=== PATIENT | male | born 1965 ===

== ENCOUNTER 2025-05-12 20:47 | Inpatient (IN) | payer MEDICAID, OTHER, SELFPAY ==
--- NOTE | ~2025-05-12 | XR_ITS ---
CLINICAL HISTORY: cough, fever 1 view chest x-ray Comparison: None Findings: Lung inflation is normal. Cardiac and mediastinal silhouettes are normal. Pulmonary arterial vasculature is normal. There is no pneumothorax or pleural effusion. No consolidative opacities. Osseous structures are normal. IMPRESSION: 1. No acute cardiopulmonary process. This document has been electronically signed by: Kiko Nguyen III, MD PHD on 05/12/2025 22:51:48
--- NOTE | ~2025-05-12 | XR_ITS ---
CLINICAL HISTORY: pain 3 view left foot Comparison: None provided Findings: No fractures or dislocations. No significant loss of joint space, osteophytes, or erosions. Calcaneal plantar enthesopathy is present. Subtalar articulations are normally aligned. Degenerative changes are present at the talonavicular articulation. No ankle effusion. No radiopaque foreign body. IMPRESSION: 1. No acute fracture, subluxation or dislocation. 2. Talonavicular degenerative change. This document has been electronically signed by: Kiko Nguyen III, MD PHD on 05/12/2025 22:51:02
--- NOTE | ~2025-05-12 | CT_ITS ---
CLINICAL HISTORY: R sided headache x [address] head without contrast Indication: Right-sided headache Comparison: None Findings: Brain is normal in volume and morphology. Ventricles are normal in size. Midbrain, jenn, medulla, and cerebellum are normal. There is no focal loss of ann-white differentiation in a large arterial distribution. No subarachnoid hemorrhage is present. No subdural or epidural hematoma. Suprasellar and basal cisterns are clear. There is no midline shift. Dural venous sinuses are symmetrically dense. There is a partial empty sella. Orbits are normal. Extraocular muscles are symmetric. Prominence of the bilateral superficial temporal arteries. No acute calvarial fracture or diastasis. Mastoid air cells are normally aerated. Paranasal sinuses are clear. Temporomandibular articulations are normally aligned. IMPRESSION: 1. No acute intracranial hemorrhage. 2. No loss of ann-white differentiation in a large vascular distribution. 3. Prominence of the superficial temporal arteries may be seen with inflammatory conditions, such as temporal arteritis. These may be clinically correlated. This document has been electronically signed by: Kiko Nguyen III, MD PHD on 05/12/2025 23:59:01
[2025-05-12 21:12] VITALS: BP 110/54; PULSE 106; RESP 20; TEMP 38.3; O2SAT 97; BMI 36.3
--- NOTE | 2025-05-12 21:13 | ED_ITS ---
HPI - Headache General Chief Complaint: Headache Stated Complaint: right side headache through right eye Time Seen by Provider: 05/12/25 21:21 Source: patient and family Mode of arrival: ambulatory Limitations: no limitations History of Present Illness ED Provider: Dr. Nicky Barragan HPI Narrative: Patient comes to the emergency room complaining of 2 weeks of fever especially at night. Patient states that he has headache especially on the right side in the temporal aspect, and left toe pain. Patient states that he does not have any medical problems, does not quite go to the doctor to get checked out. Patient denies any blurred vision, visual changes, headache is only on the right side and the temporal aspect, no neck pain or stiffness, no vomiting diarrhea, no chest pain or shortness of breath, no flank pain, no dysuria or hematuria. No rash other than the swelling in the great toe that has been present for 2 days. Patient states that he has never been diagnosed with gout before Related Data Allergies Allergy/AdvReac Type Severity Reaction Status Date / Time No Known Allergies Allergy Verified 05/12/25 21:13 Review of Systems 2 Review of Systems: Constitutional : No Weight loss, complaining of intermittent Fever for 2 weeks, worse at night, No Chills, No Night Sweats, No Fatigue, No Malaise ENT/Mouth : No Hearing loss, No Ear Pain, No Nasal Congestion, No Sinus Pain, No Hoarseness, No sore throat, No Rhinorrhea, No Swallowing Difficulty Eyes: No Eye Pain, No Swelling, No Redness, No Foreign Body, No Discharge, No Vision Changes Cardiovascular : No Chest Pain, No SOB, No Dyspnea on Exertion, No Orthopnea, No Edema, No Palpitations Respiratory : No Cough, No Sputum, No Wheezing, No Smoke Exposure, No Dyspnea Gastrointestinal : No Nausea, No Vomiting, No Diarrhea, No Constipation, No abdominal Pain, No Hematochezia, No Melena Genitourinary : no irregular bleeding, No Dysuria, No Urinary Frequency, No Hematuria, No Urinary Incontinence, No Urgency, No Flank Pain, No Urinary Flow Changes, No Hesitancy Musculoskeletal : No joint pain, No Myalgias, No Joint Swelling Skin : No Skin Lesions, No rash, complaining of great toe pain for 2 days Neuro : No Weakness, No Numbness, No Paresthesias, No Loss of Consciousness, No Dizziness, complaining of right temporal headache intermittently, Psych : No Anxiety/Panic, No Depression, No SI/HI/AH/VH, No Social Issues, Heme/Lymph: No Bruising, No Bleeding,No Lymphadenopathy Endocrine : No Polyuria, No Polydipsia, No Temperature Intolerance [facility] Social History Social History Do you have a plan to hurt others: No Plan Physical Exam 2 Exam: Exam: Appearance: Alert. Oriented X3. No acute distress. Eyes: Pupils equal, round and reactive to light. ENT: Pharynx normal. Neck: Normal inspection. Neck supple. No lymph nodes noted. No crepitus CVS: Normal heart rate and rhythm. Pulses normal. Normal S1 and S2 Respiratory: No respiratory distress. Breath sounds normal. No Wheezing. No rales Abdomen: Soft and nontender. No rigidity. No distention. Skin: Skin warm and dry. Normal skin color. Normal skin turgor. , tenderness to palpation over the right side of the head over the temporal region Extremities: No lower extremity edema. No Lacerations. No Rash. Patient's toe on the left foot is erythematous and a bit swollen, no pus drainage Neuro: Oriented X 3. No motor deficit. No sensory deficit. Moving all extremities. No slurred speech. CN 2 through 12 grossly intact Psych: calm, cooperative, normal affect Vital Signs: Vital Signs: Last Vital Signs Temp 98.7 F 05/13/25 00:07 Pulse 88 05/13/25 00:07 Resp 16 05/13/25 00:07 BP 94/57 L 05/13/25 00:58 Pulse Ox 98 05/13/25 00:07 O2 Del Method Room Air 05/13/25 00:07 BMI result Body Mass Index 36.3 Course Course Course Narrative: 60 yo male who does not go to the doctors so unclear if he has any medical problems at this time he c/o L toe pain, R sided headache for 2 weeks. He denies fevers but has a fever of 101 here. He denies travel. He c/o L great toe pain as well. His pain is localized over R temporal artery. When asked about a fall he states not since September. At this time he will need labs, cultures, lactic acid, foot xray, head CT, CXR and start on empiric abx in case of toe infection/pneumonia this is a RAPID medical screening exam the rest of the history and physical exam is to be done by the main provider. TYSHAWN 05/12/25 916pm Medications Administered Discontinued Medications Generic Name Dose Route Start Last Admin Trade Name Sushil PRN Reason Stop Dose Admin Colchicine 0.6 mg 05/13/25 00:29 05/13/25 01:05 Colchicine 0.6 Mg Tablet PO 05/13/25 00:30 0.6 mg ONCE ONE Administration Acetaminophen 1,000 mg in 100 mls @ 400 mls/hr 05/12/25 21:14 05/12/25 21:40 Ofirmev IV 05/12/25 21:28 Infused ONCE ONE Infusion Piperacillin Sod/Tazobactam 50 mls @ 100 mls/hr 05/12/25 21:14 05/12/25 22:35 Sod 3.375 gm/ Sodium Chloride IV 05/12/25 21:43 Infused ONCE ONE Infusion Sodium Chloride 2,000 mls @ 999 mls/hr 05/12/25 21:43 05/13/25 00:15 Ns IVCONT 05/12/25 23:43 Infused .Q2H1M ONE Infusion Prednisone 60 mg 05/13/25 00:30 05/13/25 01:04 Prednisone 20 Mg Tablet PO 05/13/25 00:31 60 mg ONCE ONE Administration Medical Decision Making Medical Decision Making MDM Narrative: patient has already been prophylactically started on IV fluids based on ideal weight of 50 kg, patient is obese. Also, receiving prophylactic antibiotics. My interpretation of labs: Patient's white blood cell count is 13.9. Hemoglobin 12.9. We did not have any previous labs for comparison. Normal chemistry, normal lactic acid. Serology negative for COVID and RSV patient has normal range of motion with neck flexion and extension, no rigidity or stiffness, meningitis is not suspected patient's ESR is 58, CRP 8.31. CT scan does not show any acute intracranial hemorrhage, permanent sats superficial temporal arteries, possible temporal arteritis patient's blood pressure has been dropping to the low 90s despite IV fluids. No significant hypotension. Patient received earlier today IV fluids, antibiotics on arrival, patient had a fever of 101. No clear source of infection, it may be secondary to autoimmune process or giant cell arteritis I discussed the above-mentioned with Dr. Brown from the Medicine team, patient being admitted Differential Diagnosis Differential Diagnoses: The differential diagnosis associated with the presentation includes ( gout, temporal arteritis, viral syndrome) Consult Healthcare Provider Management of the patient was discussed with: Hospitalist Lab Data MDM Lab Attestation statement: I reviewed the patient's lab results. 05/12/25 21:34 05/12/25 21:34 Labs: Lab Results 05/12/25 05/13/25 Range/Units 21:34 00:19 WBC 13.9 H (4.8-10.8) X10*3/uL RBC 3.78 L (4.60-5.80) X10*6/uL Hgb 12.4 L (14.0-18.0) g/dl Hct 33.9 L (42.0-52.0) % MCV 89.7 (80.0-98.0) fL MCH 32.8 (27.0-33.0) pg MCHC 36.6 H (31.0-36.0) g/dl RDW 11.9 (11.0-16.0) % Plt Count 300 (160-400) X10*3/uL MPV 9.1 L (9.4-12.4) fL Immature Gran % (Auto) 0.3 (0.0-0.4) % Neut % (Auto) 83.4 H (45-73) % Lymph % (Auto) 10.3 L (20-40) % [place] % (Auto) 4.7 (2-11) % Eos % (Auto) 0.9 (0-4) % Baso % (Auto) 0.4 (0-2) % Lymph # (Auto) 1.4 (1.2-4.9) X10*3/uL [place] # (Auto) 0.7 (0.1-1.2) X10*3/uL Eos # (Auto) 0.1 (0.0-0.4) X10*3/uL Baso # (Auto) 0.1 (0.0-0.2) X10*3/uL Abs Immat Gran (auto) 0.04 H (0.00-0.03) X10*3/uL Absolute Neuts (auto) 11.6 H (2.0-8.3) x10*3/uL Absolute Nucleated RBC 0.000 (0.0-0.012) X10*3/uL Nucleated RBC % (auto) 0.0 (0.0-0.2) /100WBC ESR 58 H (0-15) MM/HR Sodium 136 (135-145) mmol/L Potassium 3.6 (3.3-5.1) mmol/L Chloride 103 (96-108) mmol/L Carbon Dioxide 24 (22-29) mmol/L Anion Gap 13 (12-20) BUN 23 H (9-16) mg/dL Creatinine 0.91 (0.5-1.4) mg/dL Estim Creat Clear Calc 86.0 Estimated GFR > 60 Random Glucose 113 (60-115) mg/dL Lactic Acid 1.2 (0.5-2.0) mmol/L Calcium 8.5 (8.4-10.2) mg/dL Total Bilirubin 0.4 (0.0-1.0) mg/dL Direct Bilirubin 0.2 (0.0-0.5) mg/dL AST 27 (5-37) U/L ALT 23 (0-40) U/L Alkaline Phosphatase 94 (39-117) U/L C-Reactive Protein 8.31 H (< or = 0.50) mg/dL Total Protein 7.4 (6.5-8.0) g/dL Albumin 3.9 (3.5-5.0) g/dL Urine Color Yellow Urine Appearance Clear Urine pH 5.5 (5.0-9.0) Ur Specific [place] 1.020 (1.005-1.025) Urine Protein Negative (Neg-Trace) mg/dL Urine Glucose (UA) Negative (Negative) mg/dL Urine Ketones Negative (Negative) mg/dL Urine Blood Negative (Negative) Urine Nitrite Negative (Negative) Ur Leukocyte Esterase Negative (Negative) COVID-19 ([facility]ON) Negative (Negative) COVID-19 Clin Com See Note Independent Interpretation I performed an independent interpretation of an: CT Scan Radiology Impression Discussion of test interpretation with radiology: I have reviewed the radiologist's reading. Radiologist Impression: Brain is normal in volume and morphology. Ventricles are normal in size. Midbrain, jenn, medulla, and cerebellum are normal. There is no focal loss of ann-white differentiation in a large arterial distribution. No subarachnoid hemorrhage is present. No subdural or epidural hematoma. Suprasellar and basal cisterns are clear. There is no midline shift. Dural venous sinuses are symmetrically dense. There is a partial empty sella. Orbits are normal. Extraocular muscles are symmetric. Prominence of the bilateral superficial temporal arteries. No acute calvarial fracture or diastasis. Mastoid air cells are normally aerated. Paranasal sinuses are clear. Temporomandibular articulations are normally aligned. IMPRESSION: 1. No acute intracranial hemorrhage. 2. No loss of ann-white differentiation in a large vascular distribution. 3. Prominence of the superficial temporal arteries may be seen with inflammatory conditions, such as temporal arteritis. These may be clinically correlated. Critical Care Time Critical Care Time Critical Care Time: Yes Total Critical Care Time: 60 Attestation: I have personally provided critical care time. Time includes review of lab data, radiology results, discussion with consultants, and monitoring for potential decompensation. Intervention performed as documented. Discharge Plan Discharge Clinical Impression: Temporal giant cell arteritis, Fever, Acute hypotension Patient Disposition: Admitted As Inpatient
[2025-05-12 21:42] LABS: MANUAL DIFF FLAG NO
[2025-05-12 21:44] LABS: Hematocrit 33.9 % (42.0-52.0); Hemoglobin 12.4 g/dl (14.0-18.0); Imm Gran Abs Auto 0.04 X10*3/uL (0.00-0.03); Imm Gran Pct Auto 0.3 % (0.0-0.4); Lymphocytes Absolute Auto 1.4 X10*3/uL (1.2-4.9); Mean Corpuscular HGB Conc 36.6 g/dl (31.0-36.0); Mean Corpuscular Hemoglobin 32.8 pg (27.0-33.0); Mean Corpuscular Volume 89.7 fL (80.0-98.0); NRBC Abs Auto 0.000 X10*3/uL (0.0-0.012); NRBC Pct Auto 0.0 /100WBC (0.0-0.2); Platelet Count 300 X10*3/uL (160-400); Red Blood Count 3.78 X10*6/uL (4.60-5.80); White Blood Count 13.9 X10*3/uL (4.8-10.8)
[2025-05-12 21:55] LABS: Anion Gap 13 (12-20); Blood Urea Nitrogen 23 mg/dL (9-16); Calcium 8.5 mg/dL (8.4-10.2); Carbon Dioxide 24 mmol/L (22-29); Chloride 103 mmol/L (96-108); Creatinine Clr Calc Pharmacy 86.0; Estimated Glomerular Filt Rate > 60; Potassium 3.6 mmol/L (3.3-5.1); Sodium 136 mmol/L (135-145)
[2025-05-12 21:57] LABS: COVID-19 Test Negative (Negative); IDNOW Serial# 55D5AD1C
[2025-05-12 22:36] LABS: Alanine Aminotransferase 23 U/L (0-40); Albumin Level 3.9 g/dL (3.5-5.0); Alkaline Phosphatase 94 U/L (39-117); Aspartate Amino Transferase 27 U/L (5-37); Total Protein 7.4 g/dL (6.5-8.0)
[2025-05-12 23:04] VITALS: TEMP 37.2
[2025-05-12 23:10] VITALS: BP 96/51; PULSE 88; RESP 18; TEMP 37.3; O2SAT 97
[2025-05-13] VITALS (15 sets, daily range): BP systolic 90–113; BP diastolic 53–59; PULSE 77–92; RESP 16–18; TEMP 36.1–37.7; O2SAT 94–100; BMI 37.9
[2025-05-13 00:31] LABS: Appearance Urine Clear; Glucose Urine UA Negative (Negative); PH 5.5 (5.0-9.0); Specific Gravity - Urine 1.020 (1.005-1.025)
--- NOTE | 2025-05-13 01:12 | PC.NURSE ---
pt medicated per MAR, b/p noted and provider advised. pt resting, family at bedside.
--- NOTE | 2025-05-13 01:49 | P.HPHOSP_ITS ---
History of Present Illness Date of Service: 05/13/25 Attending physician on admission: Lesa Frazier Chief Complaint: Right-sided headache Chandler Plummer is a 60 years old man with no significant past medical history presents to the emergency department complaining of right-sided headache over the last 2 weeks associated with fever. The headache radiate to his right eye and tip of the head. He denied any acute visual disturbances social blindness, blurry vision or double vision. He is also complaining of left 1st toe swelling and pain. He has no history of gout. He also denied any nausea, vomiting, chills, chest pain, sore throat, shortness on breath, abdominal pain, nausea, vomiting, diarrhea or pain with urination. He denied tobacco smoking, alcohol abuse or illicit drug use. He does not have history type mellitus, essential hypertension, hyperlipidemia, strokes or kidney disease. Patient is not taking any medications. In the ED, he was found to have stable vital signs, however, his blood pressure is soft. Last blood pressure is 94/57. Temperature was 101 degrees and there was mild tachycardia. Oxygen saturation is normal. Blood workup showed leukocytosis of 13.9. CRP is elevated at 8.31. There are no electrolyte imbalances. BUN is 23 and creatinine 0.91. Urinalysis showed no evidence of urinary. Head CT scan showed no acute intracranial hemorrhage but this showed prominence of the superficial temporal arteries may be seen with inflammatory conditions such as temporal arteritis. Left foot x-ray showed no acute fracture, stabilization or dislocation, it did showed talonavicular degenerative changes. CXR is negative. ED tx: Acetaminophen 1 g IV, Zosyn 3.375 g IV, NS 2 L bolus, colchicine 0.6 mg p.o., prednisone 60 mg p.o. daily Review of Systems 2 Review of Systems: All 12 systems were reviewed and normal except as noted in HPI. [facility] Social History Advance Directives: No Advance Directives Information Provided: Yes Do you have a plan to hurt others: No Plan Meds Allergies Allergy/AdvReac Type Severity Reaction Status Date / Time No Known Allergies Allergy Verified 05/12/25 21:13 Active Medications: Current Medications Acetaminophen (Acetaminophen 325 Mg Tablet) 650 mg PO Q6H PRN PRN Reason: Pain, Mild 1-3,fever,headache Aspirin (Aspirin Enteric Coated 81 Mg Tablet.) 81 mg PO DAILY ANNY Calcium Carbonate (Calcium Carbonate 750 Mg Tab.Chew) 750 mg PO Q4H PRN PRN Reason: Heartburn Lactated Ringer's (Lr) 1,000 mls @ 125 mls/hr IVCONT .Q8H ANNY Stop: 05/13/25 09:44 Magnesium Hydroxide (Milk Of Magnesia 30 Ml Oral.Susp) 30 ml PO DAILY PRN PRN Reason: Constipation Melatonin (Melatonin 3 Mg Tablet) 6 mg PO BEDTIME PRN PRN Reason: Insomnia Omeprazole (Omeprazole 40 Mg Capsule.Dr) 40 mg PO DAILY [facility] Ondansetron HCl (Ondansetron Hcl 4 Mg/2 Ml Vial) 4 mg IVPUSH Q8H PRN PRN Reason: Nausea and Vomiting Prednisone (Prednisone 20 Mg Tablet) 60 mg PO DAILY@1700 [facility] Sodium Chloride (0.9 % Sodium Chloride Flush 3 Ml Syringe) 3 ml IVFLUSH QSHIFT [facility] Physical Exam 2 Vital Signs and Narrative: Vital Signs: Last Vital Signs Temp 98.7 F 05/13/25 00:07 Pulse 88 05/13/25 00:07 Resp 16 05/13/25 00:07 BP 94/57 L 05/13/25 00:58 Pulse Ox 98 05/13/25 00:07 O2 Del Method Room Air 05/13/25 00:07 BMI result Body Mass Index 36.3 Constitutional - Awake and Alert, No apparent distress. Looks acutely ill. HEENT - Right temporal tenderness PERRL, EOMI Heart - S1S2, RRR, No edema Lungs - Normal lung expansion, Normal respiratory effort, No respiratory distress, CTA bilaterally Abdomen - NT / ND; +BS; No rebound or guarding Extremities - no calf tenderness bilaterally, no swelling. Left foot: Left 1st toe: Tenderness over the MTP associated with erythema and swelling. CXR negative. Check uric acid level. Musculoskeletal - Normal inspection, normal ROM Skin - Warm/Dry Neurological - Alert & oriented x3. Moving all extremities spontaneously. Psychological - Appropriate affect Results Labs 05/12/25 21:34 05/12/25 21:34 Labs: Laboratory Results - last 24 hr 05/12/25 05/13/25 21:34 00:19 MCV 89.7 MCH 32.8 MCHC 36.6 H RDW 11.9 Plt Count 300 MPV 9.1 L Immature Gran % (Auto) 0.3 Neut % (Auto) 83.4 H Lymph % (Auto) 10.3 L [place] % (Auto) 4.7 Eos % (Auto) 0.9 Baso % (Auto) 0.4 Lymph # (Auto) 1.4 [place] # (Auto) 0.7 Eos # (Auto) 0.1 Baso # (Auto) 0.1 Abs Immat Gran (auto) 0.04 H Absolute Neuts (auto) 11.6 H Absolute Nucleated RBC 0.000 Nucleated RBC % (auto) 0.0 ESR 58 H Anion Gap 13 Estim Creat Clear Calc 86.0 Estimated GFR > 60 Random Glucose 113 Lactic Acid 1.2 Calcium 8.5 Total Bilirubin 0.4 Direct Bilirubin 0.2 AST 27 ALT 23 Alkaline Phosphatase 94 C-Reactive Protein 8.31 H Total Protein 7.4 Albumin 3.9 Urine Color Yellow Urine Appearance Clear Urine pH 5.5 Ur Specific [place] 1.020 Urine Protein Negative Urine Glucose (UA) Negative Urine Ketones Negative Urine Blood Negative Urine Nitrite Negative Ur Leukocyte Esterase Negative COVID-19 ([facility]) Negative COVID-19 Clin Com See Note Assessment and Plan (1) Temporal giant cell arteritis: Status: Acute (2) Fever: Qualifiers: Fever type: unspecified Qualified Code(s): R50.9 - Fever, unspecified Status: Acute Plan Chandler Plummer is a 60 years old man presents with: Right-sided headache (temporal region) associated with leukocytosis and elevated CRP; likely giant cell arteritis. Head and neck CT scan showed findings seen with inflammatory condition such as temporal arteritis. Continue prednisone 60 mg p.o. daily. Add aspirin 81 mg p.o. daily. Monitor CRP and ESR. Vascular surgery consult for possible temporal artery biopsy if appropriate. Podagra/left 1st MTP joint acute gout flare. First line NSAIDs or colchicine; however, patient is receiving prednisone p.o. for suspected GCA which also will help with gout flare. Elevate extremity. Check uric acid. Patient will need followed by his primary care physician as he will need allopurinol in the near future once the acute flare resolves and rechecking uric acid. Fever, likely secondary to above and/or acute gout. BP is soft. (+) SIRS criteria likely secondary to above. CXR and UA negative. Empiric IV antibiotic therapy with Zosyn. Continue IV fluids. Blood culture obtained -will follow results. GI prophylaxis: Omeprazole DVT prophylaxis: SCDs, early ambulation Code status: Full Patient will need hospitalization for at least 2 midnights for fever management with empiric IV antibiotic therapy, blood workup monitoring and surgical service evaluation. Quality Stroke Does the patient have a stroke diagnosis?: No VTE Prior VTE?: No VTE Risk Level:: Medical - moderate - high VTE Device Contraindication: N/A - Device Ordered VTE Drug Contraindication: Treatment Not Indicated
[2025-05-13 02:07] LABS: Uric Acid 6.1 mg/dL (3.4-7.0)
[2025-05-13] MEDS: Lactated Ringers 1,000 ML 125 ML IVCONT (02:26)
--- NOTE | 2025-05-13 04:08 | PC.NURSE ---
pt ambulated to bathroom with steady gate, confirms urination.
[2025-05-13 06:39] LABS: MANUAL DIFF FLAG NO
[2025-05-13 07:29] LABS: Hematocrit 34.0 % (42.0-52.0); Hemoglobin 12.0 g/dl (14.0-18.0); Imm Gran Abs Auto 0.06 X10*3/uL (0.00-0.03); Imm Gran Pct Auto 0.4 % (0.0-0.4); Lymphocytes Absolute Auto 1.2 X10*3/uL (1.2-4.9); Mean Corpuscular HGB Conc 35.3 g/dl (31.0-36.0); Mean Corpuscular Hemoglobin 32.3 pg (27.0-33.0); Mean Corpuscular Volume 91.4 fL (80.0-98.0); NRBC Abs Auto 0.000 X10*3/uL (0.0-0.012); NRBC Pct Auto 0.0 /100WBC (0.0-0.2); Platelet Count 268 X10*3/uL (160-400); Red Blood Count 3.72 X10*6/uL (4.60-5.80); White Blood Count 15.3 X10*3/uL (4.8-10.8)
[2025-05-13 07:44] LABS: Anion Gap 12 (12-20); Blood Urea Nitrogen 18 mg/dL (9-16); Calcium 8.3 mg/dL (8.4-10.2); Carbon Dioxide 22 mmol/L (22-29); Chloride 105 mmol/L (96-108); Creatinine Clr Calc Pharmacy 92.1; Estimated Glomerular Filt Rate > 60; Magnesium 2.0 mg/dL (1.6-2.6); Potassium 4.1 mmol/L (3.3-5.1); Sodium 135 mmol/L (135-145)
--- NOTE | 2025-05-13 07:53 | HO.PM.IMPN ---
Subjective Subjective Date of Service: 05/13/25 Interval History: Sheep Farm Worker was used for this interaction -Hugo Patient reports resolution of vision issues Escalated steroids to pulse dose steroids for 3 days Initiate Protonix General surgery consulted for temporal artery biopsy will happen as an add on on Thursday Patient reports swelling of his hands for which we are going to treat him with Lasix likely in the setting of steroid Review of Systems Review of Systems: Yes all other systems are reviewed and are negative Physical Exam Exam: Exam: Appearance: Alert. Oriented X3. No acute distress. CVS: Normal heart rate and rhythm. Pulses normal. Normal S1 and S2 Respiratory: No respiratory distress. Breath sounds normal. No Wheezing. No rales Abdomen: Soft and nontender. No rigidity. No distention. Skin: tenderness to palpation over the right side of the head over the temporal region-improved Extremities: Mild generalized edematous appearance compared to presentation-likely secondary to steroids Neuro: Oriented X 3. No motor deficit. No sensory deficit. Vital Signs: Vital Signs: Last Vital Signs Temp 98.4 F 05/13/25 07:44 Pulse 86 05/13/25 07:44 Resp 16 05/13/25 07:44 BP 95/58 L 05/13/25 07:44 Pulse Ox 94 05/13/25 07:44 O2 Del Method Room Air 05/13/25 07:44 BMI result Body Mass Index 37.9 Objective Data Active Medications Acetaminophen (Acetaminophen 325 Mg Tablet) 975 mg PO Q6H PRN PRN Reason: Pain, Mild 1-3,fever,headache Last Admin: 05/13/25 06:19 Dose: 975 mg Documented By: ANNY Aspirin (Aspirin Enteric Coated 81 Mg Tablet.Dr) 81 mg PO DAILY [facility] Calcium Carbonate (Calcium Carbonate 750 Mg Tab.Chew) 750 mg PO Q4H PRN PRN Reason: Heartburn Lactated Ringer's (Lr) 1,000 mls @ 125 mls/hr IVCONT .Q8H [facility] Stop: 05/13/25 09:44 Last Admin: 05/13/25 02:26 Dose: 125 mls/hr Documented By: RADHA Piperacillin Sod/Tazobactam (Sod 3.375 gm/ Sodium Chloride) 50 mls @ 100 mls/hr IV Q6H [facility] Last Infusion: 05/13/25 05:38 Dose: Infused Documented By: RADHA Magnesium Hydroxide (Milk Of Magnesia 30 Ml Oral.Susp) 30 ml PO DAILY PRN PRN Reason: Constipation Melatonin (Melatonin 3 Mg Tablet) 6 mg PO BEDTIME PRN PRN Reason: Insomnia Omeprazole (Omeprazole 40 Mg Capsule.Dr) 40 mg PO DAILY [facility] Ondansetron HCl (Ondansetron Hcl 4 Mg/2 Ml Vial) 4 mg IVPUSH Q8H PRN PRN Reason: Nausea and Vomiting Prednisone (Prednisone 20 Mg Tablet) 60 mg PO DAILY@1700 [facility] Sodium Chloride (0.9 % Sodium Chloride Flush 3 Ml Syringe) 3 ml IVFLUSH QSHIFT [facility] Labs 05/13/25 06:25 05/13/25 06:25 Labs: Laboratory Results - last 24 hr 05/12/25 05/13/25 05/13/25 21:34 00:19 06:25 MCV 89.7 91.4 MCH 32.8 32.3 MCHC 36.6 H 35.3 RDW 11.9 12.1 Plt Count 300 268 MPV 9.1 L 10.5 Immature Gran % (Auto) 0.3 0.4 Neut % (Auto) 83.4 H 89.8 H Lymph % (Auto) 10.3 L 7.8 L [place] % (Auto) 4.7 1.8 L Eos % (Auto) 0.9 0.0 Baso % (Auto) 0.4 0.2 Lymph # (Auto) 1.4 1.2 [place] # (Auto) 0.7 0.3 Eos # (Auto) 0.1 0.0 Baso # (Auto) 0.1 0.0 Abs Immat Gran (auto) 0.04 H 0.06 H Absolute Neuts (auto) 11.6 H 13.8 H Absolute Nucleated RBC 0.000 0.000 Nucleated RBC % (auto) 0.0 0.0 ESR 58 H Anion Gap 13 12 Estim Creat Clear Calc 86.0 92.1 Estimated GFR > 60 > 60 Random Glucose 113 140 H Lactic Acid 1.2 Uric Acid 6.1 Calcium 8.5 8.3 L Magnesium 2.0 Total Bilirubin 0.4 Direct Bilirubin 0.2 AST 27 ALT 23 Alkaline Phosphatase 94 C-Reactive Protein 8.31 H Total Protein 7.4 Albumin 3.9 Urine Color Yellow Urine Appearance Clear Urine pH 5.5 Ur Specific [place] 1.020 Urine Protein Negative Urine Glucose (UA) Negative Urine Ketones Negative Urine Blood Negative Urine Nitrite Negative Ur Leukocyte Esterase Negative COVID-19 ([facility]) Negative COVID-19 Clin Com See Note Assessment and Plan (1) Temporal giant cell arteritis: Status: Acute Plan Sheep Farm Worker was used for this interaction-Hugo Patient is a 60-year-old [place]ian-speaking male with unclear PMH who presents to the ED on 05/12/2025 with right-sided headache over the last 2 weeks and was noted to have vision defects. Workup most likely reveals giant cell arteritis/temporal arteritis, hence he is being admitted for further medical management Symptomatic giant cell arteritis/temporal arteritis in a patient with no known/clear PMH We will escalate steroids to pulse dose steroids Protonix to prevent stress ulcers Patient reports some generalized edema, for now we are attributing it to steroid dosage. General surgery consulted, likely have a biopsy on Thursday as an add on as this is a weekend Generalized edema Likely in the setting of steroid use Lasix 40 IV b.i.d. Daily electrolyte check and replete to goal This note is constructed using voice recognition software. While every effort has been made to ensure accuracy, customer support technician errors may have been included. Quality Stroke Does the patient have a stroke diagnosis?: No VTE Prior VTE?: No VTE Risk Level:: Medical - moderate - high VTE Device Contraindication: N/A - Device Ordered VTE Drug Contraindication: Treatment Not Indicated
--- NOTE | 2025-05-13 08:38 | PHA.MEDREC ---
Pharmacy Consult ? Medication Reconciliation Pharmacy has completed the medication reconciliation. Spoke with patient's spouse at bedside, she confirmed he only takes tylenol prn pain.
[2025-05-13] MEDS: Aspirin Enteric Coated 81 MG TABLET.DR PO (08:50)
[2025-05-13] MEDS: methylPREDNISolone Sod Succ 1,000 MG in 0.9 % Sodium Chloride 50 ML 66 MG IV (09:48)
--- NOTE | 2025-05-13 15:23 | PM.CNGS ---
History of Present Illness Consult details Consult date: 05/13/25 Requesting physician: Ashlyn Billingsley Narrative: 60-year-old male patient presenting with 2 week history of fever especially at night as well as right-sided headache located in the temporal region. Patient has no prior past medical history. Patient denies changes in his vision on either side. He mainly has tenderness in the temporal scalp. He denies nausea, vomiting or bowel changes. Surgical consultation was requested for possible temporal artery biopsy. Review of Systems Review of Systems: Yes all other systems are reviewed and are negative Constitutional: Constitutional: Denies chills, Denies fever(s), Denies headache(s), Denies poor appetite and Denies weakness ENT: Denies headache(s) Cardiovascular: Cardiovascular: Denies chest pain, Denies irregular heart rhythm, Denies palpitations and Denies dyspnea Respiratory: Respiratory: Denies cough, Denies excessive phlegm production and Denies dyspnea Gastrointestinal: Gastrointestinal: Denies abdominal pain, Denies bloating, Denies change in bowel habits, Denies constipation, Denies heartburn, Denies diarrhea, Denies nausea and Denies vomiting Genitourinary: Genitourinary: Denies difficulty urinating and Denies urinary frequency Musculoskeletal: Musculoskeletal: Denies back pain, Denies muscle weakness and Denies numbness Integumentary/Breasts: Skin/Breast: Denies changing lesions and Denies unusual bruising Neurologic: Denies headache(s), Denies numbness, Denies paresthesias and Denies weakness Psychiatric: Psychiatric: Denies anxiety and Denies depression Endocrine: Endocrine: Denies palpitations Hematologic/Lymphatic: Hematologic/Lymphatic: Denies lymphadenopathy PMFSH Social History Social History Household Members: Spouse and Family Housing: House Do you presently have visiting nurse or other home services: No Patient Tobacco Use Status: Current someday Tobacco user Meds Allergies Allergy/AdvReac Type Severity Reaction Status Date / Time No Known Allergies Allergy Verified 05/12/25 21:13 Active Medications: Current Medications Acetaminophen (Acetaminophen 325 Mg Tablet) 975 mg PO Q6H PRN PRN Reason: Pain, Mild 1-3,fever,headache Last Admin: 05/13/25 06:19 Dose: 975 mg Aspirin (Aspirin Enteric Coated 81 Mg Tablet.) 81 mg PO DAILY ANNY Last Admin: 05/13/25 08:50 Dose: 81 mg Calcium Carbonate (Calcium Carbonate 750 Mg Tab.Chew) 750 mg PO Q4H PRN PRN Reason: Heartburn Piperacillin Sod/Tazobactam (Sod 3.375 gm/ Sodium Chloride) 50 mls @ 100 mls/hr IV Q6H [facility] Last Infusion: 05/13/25 11:37 Dose: Infused Methylprednisolone Sodium Succinate 1,000 mg/ Sodium Chloride 66 mls @ 66 mls/hr IV DAILY [facility] Stop: 05/16/25 08:59 Last Infusion: 05/13/25 11:01 Dose: Infused Sodium Chloride (Ns) 1,000 mls @ 80 mls/hr IVCONT .[id number] [facility] Last Admin: 05/13/25 12:43 Dose: 80 mls/hr Magnesium Hydroxide (Milk Of Magnesia 30 Ml Oral.Susp) 30 ml PO DAILY PRN PRN Reason: Constipation Melatonin (Melatonin 3 Mg Tablet) 6 mg PO BEDTIME PRN PRN Reason: Insomnia Ondansetron HCl (Ondansetron Hcl 4 Mg/2 Ml Vial) 4 mg IVPUSH Q8H PRN PRN Reason: Nausea and Vomiting Pantoprazole Sodium (Pantoprazole Sodium 40 Mg/10 Ml Vial) 40 mg IVPUSH BID@0630,1630 [facility] Last Admin: 05/13/25 08:50 Dose: 40 mg Sodium Chloride (0.9 % Sodium Chloride Flush 3 Ml Syringe) 3 ml IVFLUSH QSHIFT [facility] Last Admin: 05/13/25 08:48 Dose: Not Given Home Medications ?Medication ?Instructions ?Recorded ?Confirmed ?Last Taken ?Type acetaminophen 325 mg tablet 650 mg PO Q6H PRN Pain 05/13/25 05/13/25 05/12/25 History Physical Exam Vital Signs: Vital Signs: Last Vital Signs Temp 97.8 F 05/13/25 15:05 Pulse 88 05/13/25 15:05 Resp 16 05/13/25 15:05 BP 110/56 L 05/13/25 15:05 Pulse Ox 96 05/13/25 15:05 O2 Del Method Room Air 05/13/25 15:05 BMI result Body Mass Index 37.9 Const: General: cooperative and no acute distress Nutritional Appearance: well nourished Orientation/consciousness: patient oriented x3 Limitations: no limitations HEENT: Head: Yes normocephalic and Yes atraumatic Ears: hearing grossly normal bilaterally Resp: Effort & Inspection: normal respiratory effort, no audible wheezes, no cough and no respiratory distress Cardio: Jugular venous distension: no JVD GI: Inspection: Yes normal to inspection Skin: Other: Warm, dry, no rash Neuro: General: patient oriented x3 Extrem: General: Yes no clubbing, cyanosis or edema Results Labs 05/13/25 06:25 05/13/25 06:25 Labs: Abnormal lab results 05/12/25 05/13/25 Range/Units 21:34 06:25 WBC 13.9 H 15.3 H (4.8-10.8) X10*3/uL RBC 3.78 L 3.72 L (4.60-5.80) X10*6/uL Hgb 12.4 L 12.0 L (14.0-18.0) g/dl Hct 33.9 L 34.0 L (42.0-52.0) % MCHC 36.6 H (31.0-36.0) g/dl MPV 9.1 L (9.4-12.4) fL Neut % (Auto) 83.4 H 89.8 H (45-73) % Lymph % (Auto) 10.3 L 7.8 L (20-40) % [place] % (Auto) 1.8 L (2-11) % Abs Immat Gran (auto) 0.04 H 0.06 H (0.00-0.03) X10*3/uL Absolute Neuts (auto) 11.6 H 13.8 H (2.0-8.3) x10*3/uL ESR 58 H (0-15) MM/HR BUN 23 H 18 H (9-16) mg/dL Random Glucose 140 H (60-115) mg/dL Calcium 8.3 L (8.4-10.2) mg/dL C-Reactive Protein 8.31 H (< or = 0.50) mg/dL Short CBC 05/12/25 05/13/25 Range/Units 21:34 06:25 WBC 13.9 H 15.3 H (4.8-10.8) X10*3/uL Hgb 12.4 L 12.0 L (14.0-18.0) g/dl Hct 33.9 L 34.0 L (42.0-52.0) % Plt Count 300 268 (160-400) X10*3/uL BMP 05/12/25 05/13/25 21:34 06:25 Sodium 136 135 Potassium 3.6 4.1 Chloride 103 105 Carbon Dioxide 24 22 BUN 23 H 18 H Creatinine 0.91 0.87 Calcium 8.5 8.3 L Liver Function 05/12/25 Range/Units 21:34 Total Bilirubin 0.4 (0.0-1.0) mg/dL Direct Bilirubin 0.2 (0.0-0.5) mg/dL AST 27 (5-37) U/L ALT 23 (0-40) U/L Alkaline Phosphatase 94 (39-117) U/L Albumin 3.9 (3.5-5.0) g/dL Urine 05/13/25 Range/Units 00:19 Urine Color Yellow Urine Appearance Clear Urine pH 5.5 (5.0-9.0) Ur Specific [place] 1.020 (1.005-1.025) Urine Protein Negative (Neg-Trace) mg/dL Urine Glucose (UA) Negative (Negative) mg/dL All other labs normal. Assessment and Plan (1) Temporal giant cell arteritis: Status: Acute Plan 60-year-old male patient presenting with a recent history of fever as well as temporal headaches especially on the right side. Surgical consultation requested for temporal artery biopsy. I will add the patient on for OR schedule on Thursday. Procedures Date of Service Date of Service: 05/13/25
--- NOTE | 2025-05-13 15:53 | MHC.CM.PN ---
Addendum entered by Leonila Zambrano 05/14/25 09:04: HCP COMPLETED AND NOW ON FILE Original Note: CM MET WITH PT WITH A SUBMARINE ADVISORY TEAM WATCH OFFICER PT LIVES WITH HIS AND CHILDREN HE IS INDEPENDENT, HAS NO DME AND NO SERVICES WILL COMPLETE A HCP TODAY NAMING HIS , BELA, AND SON, REHAN, HER AGENTS HE HAS NO PCP, BUT KNOWS HE CAN GO TO [facility] FOR URGENT, DENTAL AND PRIMARY CARE WITH HIS LIMITED INSURANCE DCP: HOME VIA FAMILY TRANSPORT PT WILL NOT BE ELIGIBLE FOR HOME SERVICES
[2025-05-13] MEDS: 0.9 % Sodium Chloride Flush 3 ML SYRINGE IVFLUSH (16:04)
[2025-05-13] MEDS: Furosemide 40 MG/4 ML VIAL IVPUSH (16:20)
[2025-05-14 03:35] VITALS: BP 88/54; PULSE 73; RESP 16; TEMP 36.4; O2SAT 95
--- NOTE | 2025-05-14 03:35 | PM.EVENT ---
Event Note Date of Service: 05/14/25 Event Note: 3:30 AM - BP dropped to 88/54. Will give 500 ml IV bolus and hold furosemide. Time Spent With Patient Time: Total time managing care of this patient today ____ minutes.
[2025-05-14] MEDS: Lactated Ringers 1,000 ML 999 ML IV (03:54)
--- NOTE | 2025-05-14 04:14 | PC.NURSE ---
At 0335 pt manual BP was 88/54 other vital signs WNL, MD Kevin Frazier notified and ordered a bolus of LR. Bolus is administering and I will continue to monitor.
[2025-05-14 06:46] LABS: MANUAL DIFF FLAG NO
[2025-05-14 06:51] LABS: Hematocrit 30.7 % (42.0-52.0); Hemoglobin 10.7 g/dl (14.0-18.0); Imm Gran Abs Auto 0.10 X10*3/uL (0.00-0.03); Imm Gran Pct Auto 0.6 % (0.0-0.4); Lymphocytes Absolute Auto 1.4 X10*3/uL (1.2-4.9); Mean Corpuscular HGB Conc 34.9 g/dl (31.0-36.0); Mean Corpuscular Hemoglobin 31.8 pg (27.0-33.0); Mean Corpuscular Volume 91.1 fL (80.0-98.0); NRBC Abs Auto 0.000 X10*3/uL (0.0-0.012); NRBC Pct Auto 0.0 /100WBC (0.0-0.2); Platelet Count 264 X10*3/uL (160-400); Red Blood Count 3.37 X10*6/uL (4.60-5.80); White Blood Count 15.8 X10*3/uL (4.8-10.8)
[2025-05-14 07:16] LABS: Alanine Aminotransferase 16 U/L (0-40); Albumin Level 3.1 g/dL (3.5-5.0); Alkaline Phosphatase 79 U/L (39-117); Anion Gap 11 (12-20); Aspartate Amino Transferase 19 U/L (5-37); Blood Urea Nitrogen 24 mg/dL (9-16); Calcium 8.0 mg/dL (8.4-10.2); Carbon Dioxide 22 mmol/L (22-29); Chloride 108 mmol/L (96-108); Creatinine Clr Calc Pharmacy 96.5; Estimated Glomerular Filt Rate > 60; Potassium 3.5 mmol/L (3.3-5.1); Sodium 137 mmol/L (135-145); Total Protein 6.3 g/dL (6.5-8.0)
--- NOTE | 2025-05-14 07:47 | P.PNIM_ITS ---
Subjective Subjective Date of Service: 05/14/25 Interval History: Patient reportedly feels better Apparently patient had a hypotensive episode bolus Hence we will discontinue Lasix Patient's edema appears to be decreased Displayer Dariana was used for this encounter Review of Systems Review of Systems: Yes all other systems are reviewed and are negative Physical Exam 2 Exam: Exam: Appearance: Alert. Oriented X3. No acute distress. CVS: Normal heart rate and rhythm. Pulses normal. Normal S1 and S2 Respiratory: No respiratory distress. Breath sounds normal. No Wheezing. No rales Abdomen: Soft and nontender. No rigidity. No distention. Skin: No tenderness appreciated Extremities: Decreased generalized edematous appearance compared to presentation-likely secondary to steroids Neuro: Oriented X 3. No motor deficit. No sensory deficit. Vital Signs: Vital Signs: Last Vital Signs Temp 97.6 F 05/14/25 03:35 Pulse 73 05/14/25 03:35 Resp 16 05/14/25 03:35 BP 88/54 L 05/14/25 03:35 Pulse Ox 95 05/14/25 03:35 O2 Del Method Room Air 05/14/25 03:35 BMI result Body Mass Index 37.9 Objective Data Active Medications Acetaminophen (Acetaminophen 325 Mg Tablet) 975 mg PO Q6H PRN PRN Reason: Pain, Mild 1-3,fever,headache Last Admin: 05/13/25 22:09 Dose: 975 mg Documented By: ANNY Aspirin (Aspirin Enteric Coated 81 Mg Tablet.) 81 mg PO DAILY [facility] Last Admin: 05/13/25 08:50 Dose: 81 mg Documented By: MAGALY Calcium Carbonate (Calcium Carbonate 750 Mg Tab.Chew) 750 mg PO Q4H PRN PRN Reason: Heartburn Piperacillin Sod/Tazobactam (Sod 3.375 gm/ Sodium Chloride) 50 mls @ 100 mls/hr IV Q6H [facility] TO [facility] Last Infusion: 05/14/25 05:55 Dose: Infused Documented By: ANNY Methylprednisolone Sodium Succinate 1,000 mg/ Sodium Chloride 66 mls @ 66 mls/hr IV DAILY [facility] Stop: 05/16/25 08:59 Last Infusion: 05/13/25 11:01 Dose: Infused Documented By: MAGALY Sodium Chloride (Ns) 1,000 mls @ 80 mls/hr IVCONT .[id number] [facility] TO [facility] Last Infusion: 05/14/25 05:05 Dose: 80 mls/hr Documented By: ANNY Magnesium Hydroxide (Milk Of Magnesia 30 Ml Oral.Susp) 30 ml PO DAILY PRN PRN Reason: Constipation Melatonin (Melatonin 3 Mg Tablet) 6 mg PO BEDTIME PRN PRN Reason: Insomnia Ondansetron HCl (Ondansetron Hcl 4 Mg/2 Ml Vial) 4 mg IVPUSH Q8H PRN PRN Reason: Nausea and Vomiting Pantoprazole Sodium (Pantoprazole Sodium 40 Mg/10 Ml Vial) 40 mg IVPUSH BID@0630,1630 [facility] Last Admin: 05/14/25 05:56 Dose: 40 mg Documented By: ANNY Sodium Chloride (0.9 % Sodium Chloride Flush 3 Ml Syringe) 3 ml IVFLUSH QSHIFT [facility] Last Admin: 05/14/25 00:07 Dose: Not Given Documented By: ANNY Non-Admin Reason: IV Running Labs 05/14/25 06:14 05/14/25 06:14 Labs: Laboratory Results - last 24 hr 05/14/25 06:14 MCV 91.1 MCH 31.8 MCHC 34.9 RDW 11.9 Plt Count 264 MPV 10.3 Immature Gran % (Auto) 0.6 H Neut % (Auto) 88.3 H Lymph % (Auto) 8.9 L [place] % (Auto) 2.1 Eos % (Auto) 0.0 Baso % (Auto) 0.1 Lymph # (Auto) 1.4 [place] # (Auto) 0.3 Eos # (Auto) 0.0 Baso # (Auto) 0.0 Abs Immat Gran (auto) 0.10 H Absolute Neuts (auto) 14.0 H Absolute Nucleated RBC 0.000 Nucleated RBC % (auto) 0.0 Anion Gap 11 L Estim Creat Clear Calc 96.5 Estimated GFR > 60 Random Glucose 182 H Calcium 8.0 L Total Bilirubin 0.2 AST 19 ALT 16 Alkaline Phosphatase 79 C-Reactive Protein 5.89 H Total Protein 6.3 L Albumin 3.1 L Microbiology Microbiology Results: Microbiology 05/12/25 21:34 Blood Culture - Preliminary Blood - Venous No growth after 24 hours. 05/12/25 21:34 Blood Culture - Preliminary Blood - Venous No growth after 24 hours. Assessment and Plan (1) Temporal giant cell arteritis: Status: Acute Plan Displayer was used for this interaction-Hugo Patient is a 60-year-old Citizen Of [place]-speaking male with unclear PMH who presents to the ED on 05/12/2025 with right-sided headache over the last 2 weeks and was noted to have vision defects. Workup most likely reveals giant cell arteritis/temporal arteritis, hence he is being admitted for further medical management Symptomatic giant cell arteritis/temporal arteritis in a patient with no known PMH Continue IV pulse dose steroids -we will switch to p.o. prednisone tomorrow Protonix to prevent stress ulcers General surgery consulted, likely have a biopsy on Thursday as an add on as this is a Generalized edema Likely in the setting of steroid use Daily electrolyte check and replete to goal Hypotension requiring basal bolus fluids overnight on 05/13/2025 Hence we will limit Lasix This note is constructed using voice recognition software. While every effort has been made to ensure accuracy, well service derrick worker errors may have been included. Quality Stroke Does the patient have a stroke diagnosis?: No VTE Prior VTE?: No VTE Risk Level:: Medical - moderate - high VTE Device Contraindication: N/A - Device Ordered VTE Drug Contraindication: Treatment Not Indicated
[2025-05-14 07:54] VITALS: BP 107/58; PULSE 80; RESP 16; TEMP 36.7; O2SAT 97
[2025-05-14] MEDS: Aspirin Enteric Coated 81 MG TABLET.DR PO (07:59)
[2025-05-14] MEDS: methylPREDNISolone Sod Succ 1,000 MG in 0.9 % Sodium Chloride 50 ML 66 MG IV (07:59)
[2025-05-14 11:55] VITALS: BP 110/60; PULSE 87; RESP 16; TEMP 36.8; O2SAT 96
[2025-05-14 15:36] VITALS: BP 101/52; PULSE 81; RESP 18; TEMP 36.8; O2SAT 96
[2025-05-14] MEDS: 0.9 % Sodium Chloride Flush 3 ML SYRINGE IVFLUSH (17:20)
[2025-05-14 20:00] VITALS: BP 100/60; PULSE 80; RESP 18; TEMP 36.8; O2SAT 96
[2025-05-14 23:50] VITALS: BP 113/58; PULSE 75; RESP 18; TEMP 36.6; O2SAT 96
[2025-05-15 03:18] VITALS: BP 107/59; PULSE 71; RESP 18; TEMP 36.4; O2SAT 96
[2025-05-15 06:36] LABS: MANUAL DIFF FLAG NO
[2025-05-15 06:45] LABS: Hematocrit 32.6 % (42.0-52.0); Hemoglobin 11.7 g/dl (14.0-18.0); Imm Gran Abs Auto 0.25 X10*3/uL (0.00-0.03); Imm Gran Pct Auto 1.3 % (0.0-0.4); Lymphocytes Absolute Auto 1.9 X10*3/uL (1.2-4.9); Mean Corpuscular HGB Conc 35.9 g/dl (31.0-36.0); Mean Corpuscular Hemoglobin 32.7 pg (27.0-33.0); Mean Corpuscular Volume 91.1 fL (80.0-98.0); NRBC Abs Auto 0.000 X10*3/uL (0.0-0.012); NRBC Pct Auto 0.0 /100WBC (0.0-0.2); Platelet Count 341 X10*3/uL (160-400); Red Blood Count 3.58 X10*6/uL (4.60-5.80); White Blood Count 19.8 X10*3/uL (4.8-10.8)
[2025-05-15 07:16] LABS: Alanine Aminotransferase 26 U/L (0-40); Albumin Level 3.4 g/dL (3.5-5.0); Alkaline Phosphatase 84 U/L (39-117); Anion Gap 13 (12-20); Aspartate Amino Transferase 22 U/L (5-37); Blood Urea Nitrogen 26 mg/dL (9-16); Calcium 8.2 mg/dL (8.4-10.2); Carbon Dioxide 22 mmol/L (22-29); Chloride 110 mmol/L (96-108); Creatinine Clr Calc Pharmacy 88.0; Estimated Glomerular Filt Rate > 60; Potassium 3.8 mmol/L (3.3-5.1); Sodium 141 mmol/L (135-145); Total Protein 6.9 g/dL (6.5-8.0)
[2025-05-15 07:39] VITALS: BP 121/61; PULSE 64; RESP 16; TEMP 36.7; O2SAT 95
[2025-05-15] MEDS: Aspirin Enteric Coated 81 MG TABLET.DR PO (08:27)
[2025-05-15] MEDS: 0.9 % Sodium Chloride Flush 3 ML SYRINGE IVFLUSH (10:37)
[2025-05-15 12:00] VITALS: BP 129/61; PULSE 72; RESP 18; TEMP 36.8; O2SAT 98
--- NOTE | 2025-05-15 12:04 | P.CONGS_ITS ---
History of Present Illness Consult details Consult date: 05/15/25 Reason for consult: other (Giant cell arteritis) Narrative: 60-year-old gentleman with no real significant past medical history presented to the emergency room with a right-sided headache. Reports that it lasted over 2 weeks. He has complains of just a generalized headache. Upon my discussion with him he reports in general it has improved. It is not localized to any temporal region but more of a generalized a discomfort. He now presents to us for vascular evaluation Review of Systems 2 Review of Systems: Yes all other systems are reviewed and are negative Constitutional: Constitutional: Reports no additional constitutional complaints ENT: Reports Normal hearing present Cardiovascular: Cardiovascular: Denies chest pain, Denies chest pain at rest, Denies chest pain with activity and Denies pedal edema Respiratory: Respiratory: Denies cough Gastrointestinal: Gastrointestinal: Denies abdominal pain Musculoskeletal: Musculoskeletal: Denies abnormal gait, Denies muscle cramps and Denies radiating pain into limb Integumentary/Breasts: Skin/Breast: Denies skin ulcer and Denies wounds Neurologic: Reports Normal hearing present and Denies abnormal gait Psychiatric: Psychiatric: Reports no additional psychiatric complaints PMFSH Social History Social History Household Members: Spouse and Family Housing: House Do you presently have visiting nurse or other home services: No Patient Tobacco Use Status: Current someday Tobacco user service: No Meds Allergies Allergy/AdvReac Type Severity Reaction Status Date / Time No Known Allergies Allergy Verified 05/12/25 21:13 Active Medications: Current Medications Acetaminophen (Acetaminophen 325 Mg Tablet) 975 mg PO Q6H PRN PRN Reason: Pain, Mild 1-3,fever,headache Last Admin: 05/13/25 22:09 Dose: 975 mg Aspirin (Aspirin Enteric Coated 81 Mg Tablet.Dr) 81 mg PO DAILY [facility] Last Admin: 05/15/25 08:27 Dose: 81 mg Calcium Carbonate (Calcium Carbonate 750 Mg Tab.Chew) 750 mg PO Q4H PRN PRN Reason: Heartburn Piperacillin Sod/Tazobactam (Sod 3.375 gm/ Sodium Chloride) 50 mls @ 100 mls/hr IV Q6H [facility] Last Infusion: 05/15/25 11:39 Dose: Infused Sodium Chloride (Ns) 1,000 mls @ 80 mls/hr IVCONT .[id number] [facility] Last Infusion: 05/15/25 04:41 Dose: 80 mls/hr Magnesium Hydroxide (Milk Of Magnesia 30 Ml Oral.Susp) 30 ml PO DAILY PRN PRN Reason: Constipation Melatonin (Melatonin 3 Mg Tablet) 6 mg PO BEDTIME PRN PRN Reason: Insomnia Ondansetron HCl (Ondansetron Hcl 4 Mg/2 Ml Vial) 4 mg IVPUSH Q8H PRN PRN Reason: Nausea and Vomiting Pantoprazole Sodium (Pantoprazole Sodium 40 Mg/10 Ml Vial) 40 mg IVPUSH BID@0630,1630 [facility] Last Admin: 05/15/25 06:35 Dose: 40 mg Prednisone (Prednisone 20 Mg Tablet) 60 mg PO DAILY [facility] Last Admin: 05/15/25 08:27 Dose: 60 mg Sodium Chloride (0.9 % Sodium Chloride Flush 3 Ml Syringe) 3 ml IVFLUSH QSHIFT [facility] Last Admin: 05/15/25 10:37 Dose: 3 ml Home Medications ?Medication ?Instructions ?Recorded ?Confirmed ?Last Taken ?Type acetaminophen 325 mg tablet 650 mg PO Q6H PRN Pain 03/0105/13/25 05/12/25 History Physical Exam 2 Vital Signs: Vital Signs: Last Vital Signs Temp 98.1 F 05/15/25 07:39 Pulse 64 05/15/25 07:39 Resp 16 05/15/25 07:39 BP 121/61 05/15/25 07:39 Pulse Ox 95 05/15/25 07:39 O2 Del Method Room Air 05/15/25 07:39 BMI result Body Mass Index 37.9 Const: General: cooperative, healthy appearing and comfortable O rientation/consciousness: oriented to person, oriented to place and oriented to time HEENT: Head: Yes normal to inspection Neck: Neck: Yes normal visual inspection Carotids: no bruits Chest: Chest palpation & inspection: normal inspection of the chest Resp: Effort & Inspection: normal respiratory effort and able to speak in complete sentences Auscultation: clear to auscultation bilaterally, no crackles, no rales, no rhonchi and no wheezes Cardio: Rate: regular rate Rhythm: regular rhythm Heart sounds: S1 normal heart sound present and S2 normal heart sound present Bruits: no carotid bruits Peripheral pulses: Peripheral pulses 2+ throughout GI: Inspection: Yes normal to inspection Skin: Wounds: no wounds Hair: normal Neuro: General: oriented to person, oriented to place and oriented to time Cranial nerves: Yes CN's II-XII intact bilaterally and Yes Normal hearing present Cognition (Neuro): normal cognition Motor exam (neuro): 5/5 motor strength present throughout Extrem: Other: venous exam: No significant superficial varicosities or spider telangiectasias, minimal edema General: No clubbing, No cyanosis and No edema Psych: Appearance: grossly normal Mental Status: mental status grossly normal Speech and movement: Normal speech and movement present Results Labs 05/15/25 05:54 05/15/25 05:54 Labs: Abnormal lab results 05/15/25 Range/Units 05:54 WBC 19.8 H (4.8-10.8) X10*3/uL RBC 3.58 L (4.60-5.80) X10*6/uL Hgb 11.7 L (14.0-18.0) g/dl Hct 32.6 L (42.0-52.0) % Immature Gran % (Auto) 1.3 H (0.0-0.4) % Neut % (Auto) 86.1 H (45-73) % Lymph % (Auto) 9.4 L (20-40) % Abs Immat Gran (auto) 0.25 H (0.00-0.03) X10*3/uL Absolute Neuts (auto) 17.1 H (2.0-8.3) x10*3/uL Chloride 110 H (96-108) mmol/L BUN 26 H (9-16) mg/dL Random Glucose 156 H (60-115) mg/dL Calcium 8.2 L (8.4-10.2) mg/dL Albumin 3.4 L (3.5-5.0) g/dL Short CBC 05/15/25 Range/Units 05:54 WBC 19.8 H (4.8-10.8) X10*3/uL Hgb 11.7 L (14.0-18.0) g/dl Hct 32.6 L (42.0-52.0) % Plt Count 341 D (160-400) X10*3/uL BMP 05/15/25 05:54 Sodium 141 Potassium 3.8 Chloride 110 H Carbon Dioxide 22 BUN 26 H Creatinine 0.91 Calcium 8.2 L Liver Function 05/15/25 Range/Units 05:54 Total Bilirubin 0.2 (0.0-1.0) mg/dL AST 22 (5-37) U/L ALT 26 (0-40) U/L Alkaline Phosphatase 84 (39-117) U/L Albumin 3.4 L (3.5-5.0) g/dL Urine 05/13/25 Range/Units 00:19 Urine Color Yellow Urine Appearance Clear Urine pH 5.5 (5.0-9.0) Ur Specific [place] 1.020 (1.005-1.025) Urine Protein Negative (Neg-Trace) mg/dL Urine Glucose (UA) Negative (Negative) mg/dL All other labs normal. 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 At the current time being treated with steroids. I did discuss this with the patient and we can schedule electively for right temporal artery biopsy. Risks benefits complications of the procedure were discussed in detail with the patient he agreed and would like to move forward. Once again stable from our perspective for discharge and we can schedule electively as an outpatient. Procedures Date of Service Date of Service: 05/15/25
--- NOTE | 2025-05-15 13:14 | PM.DS ---
DS: Providers Provider Date of Service: 05/15/25 Date of admission: 05/13/25 01:45 Date of discharge: 05/15/25 Primary care physician: Unknown Physician Consults: 05/13/25 01:44 Consult to Vascular Surgery Routine Consulting Provider: [facility] Reason for consultation: ?GCA, temporal artery biopsy Has provider been notified: No DS: Diagnosis Discharge Diagnosis (1) Temporal giant cell arteritis: Status: Acute DS: Summary Hospital Course Hospital Course: History and physical as per admitting provider. Chandler Plummer is a 60 years old man with no significant past medical history presents to the emergency department complaining of right-sided headache over the last 2 weeks associated with fever. The headache radiate to his right eye and tip of the head. He denied any acute visual disturbances social blindness, blurry vision or double vision. He is also complaining of left 1st toe swelling and pain. He has no history of gout. He also denied any nausea, vomiting, chills, chest pain, sore throat, shortness on breath, abdominal pain, nausea, vomiting, diarrhea or pain with urination. He denied tobacco smoking, alcohol abuse or illicit drug use. He does not have history type mellitus, essential hypertension, hyperlipidemia, strokes or kidney disease. Patient is not taking any medications. In the ED, he was found to have stable vital signs, however, his blood pressure is soft. Last blood pressure is 94/57. Temperature was 101 degrees and there was mild tachycardia. Oxygen saturation is normal. Blood workup showed leukocytosis of 13.9. CRP is elevated at 8.31. There are no electrolyte imbalances. BUN is 23 and creatinine 0.91. Urinalysis showed no evidence of urinary. Head CT scan showed no acute intracranial hemorrhage but this showed prominence of the superficial temporal arteries may be seen with inflammatory conditions such as temporal arteritis. Left foot x-ray showed no acute fracture, stabilization or dislocation, it did showed talonavicular degenerative changes. CXR is negative. ED tx: Acetaminophen 1 g IV, Zosyn 3.375 g IV, NS 2 L bolus, colchicine 0.6 mg p.o., prednisone 60 mg p.o. daily 60-year-old man treated for right-sided headache over 2 weeks and some vision defects. Workup likely reveals diet so arteritis/temporal arteritis. He was treated with IV steroids then switch to oral. Discussed with vascular surgery who will follow outpatient for possible biopsy. Patient will also need to follow up with Rheumatology. Plan is to discharge patient with steroid taper. 60 mg for 2 weeks, 50 mg per 2 weeks 40 mg for 2 weeks, 30 mg for 2 weeks after that patient should follow up with Rheumatology for further management of prednisone taper. Continue PPI while on steroids to prevent stress ulcer. Time Attestation Discharge Coordination Time (in mins): 45 Quality: Safe Use of Opioids Does Pt have an Active Cancer Diagnosis on the Problem List?: No Quality: Stroke Does the patient have a stroke diagnosis?: No Physical Exam Exam: Exam: Appearing in no acute distress head is normocephalic atraumatic eyes pupils are PERRLA sclera is anicteric mouth throat mucous membranes are intact and moist neck is supple no lymphadenopathy, no JVD noted lung sounds are clear to auscultation heart regular rate rhythm, clear S1, S2 positive bowel sounds, abdomen is soft, nontender neuro patient is alert x3, no focal deficits Vital Signs: Vital Signs: Last Vital Signs Temp 98.3 F 05/15/25 12:00 Pulse 72 05/15/25 12:00 Resp 18 05/15/25 12:00 BP 129/61 05/15/25 12:00 Pulse Ox 98 05/15/25 12:00 O2 Del Method Room Air 05/15/25 12:00 BMI result Body Mass Index 37.9 DS: Data Data Completed and Pending Labs on day of discharge: Laboratory Results - last 24 hr 05/15/25 05:54 WBC 19.8 H RBC 3.58 L Hgb 11.7 L Hct 32.6 L MCV 91.1 MCH 32.7 MCHC 35.9 RDW 12.1 Plt Count 341 D MPV 10.7 Immature Gran % (Auto) 1.3 H Neut % (Auto) 86.1 H Lymph % (Auto) 9.4 L [place] % (Auto) 3.1 Eos % (Auto) 0.0 Baso % (Auto) 0.1 Lymph # (Auto) 1.9 [place] # (Auto) 0.6 Eos # (Auto) 0.0 Baso # (Auto) 0.0 Abs Immat Gran (auto) 0.25 H Absolute Neuts (auto) 17.1 H Absolute Nucleated RBC 0.000 Nucleated RBC % (auto) 0.0 Sodium 141 Potassium 3.8 Chloride 110 H Carbon Dioxide 22 Anion Gap 13 BUN 26 H Creatinine 0.91 Estim Creat Clear Calc 88.0 Estimated GFR > 60 Random Glucose 156 H Calcium 8.2 L Total Bilirubin 0.2 AST 22 ALT 26 Alkaline Phosphatase 84 Total Protein 6.9 Albumin 3.4 L Preliminary micro results at discharge 05/12/25 21:34 Blood Culture - Preliminary Blood - Venous No growth after 48 hours. 05/12/25 21:34 Blood Culture - Preliminary Blood - Venous No growth after 48 hours. Discharge Plan Discharge Anticipated Discharge Date/Time: 05/15/25 12:40 Patient Disposition: Home, Self-Care Discharge Diagnosis: Possible giant cell arteritis/temporal arteritis Headache, visual changes Referrals: Laura Gaxiola MD [Physician, Rheumatology] - 1 Week Referral Note: Follow up for possible giant cell arteritis and further prednisone taper instructions Discharge Medications: New prednisone 10 mg tablet See Taper PO DIRECTED Qty: 252 0RF Taper: Prednisone 60 mg daily for 14 Days and 0 Hour 50 mg daily for 14 Days and 0 Hour 40 mg daily for 14 Days and 0 Hour 30 mg daily for 14 Days and 0 Hour Rx Instructions: Take 60 mg for 2 weeks then 50 mg for 2 weeks then 40 mg for 2 weeks then 30 mg for 2 weeks then follow up with the Rheumatology for further taper instructions oxycodone 5 mg tablet 5 mg PO Q8H PRN (Reason: pain) Qty: 15 0RF Rx Instructions: Partial Fill upon patient request. omeprazole magnesium [Prilosec OTC] 20 mg tablet,delayed release (DR/EC) 20 mg PO DAILY Qty: 90 0RF Continued acetaminophen 325 mg Tablet 650 mg PO Q6H PRN (Reason: Pain) Discharge Orders: Discharge Order (Routine); Ordered 05/15/25 Ordered By: Minnie Simmons Diet: Advance to usual diet Activity on Discharge: As tolerated Stand Alone Forms: Patient Portal Discharge page Print Language: Kiswahili Care Plan Goals: Complete prednisone taper as prescribed Follow up with Rheumatology and and vascular surgery for further management of possible giant cell arteritis Health Concerns: Possible giant cell arteritis/temporal arteritis Headache, visual changes Plan of Treatment: Follow up with primary care provider as needed Take all medications as prescribed Assessment: See discharge summary
--- NOTE | 2025-05-15 15:51 | MHC.CM.PN ---
PT DCD HOME SELF CARE
[2025-05-15 15:55] VITALS: BP 122/59; PULSE 69; RESP 18; TEMP 37; O2SAT 94
== END 2025-05-15 16:21 | disposition home or self-care (01) | DRG 346 ==
LOC: HO.ED 05-13 01:57 → HO.EDOVER 05-13 02:01 → HO.S3 05-13 04:26
PROVIDERS: Emergency Medicine; Student in an Organized Health Care Education/Training Program; Admitting Provider Internal Medicine; Emergency Provider Emergency Medicine; Visit Provider Nurse Practitioner Acute Care
DX: M31.6 Other giant cell arteritis (principal); I95.9 Hypotension, unspecified; F17.210 Nicotine dependence, cigarettes, uncomplicated; Z71.6 Tobacco abuse counseling; M10.9 Gout, unspecified; Z20.822 Contact with and (suspected) exposure to COVID-19
CPT/HCPCS: 36415; 70450; 71045; 73630; 80048; 80053; 80076; 81003; 83605; 83735; 84550; 85025; 85652; 86140; 87040; 87635; 99285; J0131; J1938; J2470; J2543; J2919; J7120

== ENCOUNTER → 2025-05-12 21:11 | Outpatient (BNV) | payer SELFPAY | PROVIDERS: Emergency Provider Emergency Medicine; Visit Provider Radiology Diagnostic Radiology | DX: R05.9 Cough, unspecified (principal); R50.9 Fever, unspecified; M19.072 Primary osteoarthritis, left ankle and foot | CPT/HCPCS: 70450; 71045; 73630 ==

== ENCOUNTER → 2025-05-13 01:45 | Outpatient (BNV) | payer MEDICAID, SELFPAY | PROVIDERS: Admitting Provider Internal Medicine; Emergency Provider Emergency Medicine; Visit Provider Surgery Vascular Surgery | DX: M31.6 Other giant cell arteritis (principal) | CPT/HCPCS: 99222 ==

== ENCOUNTER → 2025-05-13 01:45 | Outpatient (BNV) | payer MEDICAID, SELFPAY | PROVIDERS: Admitting Provider Internal Medicine; Emergency Provider Emergency Medicine; Visit Provider Internal Medicine | DX: M31.6 Other giant cell arteritis (principal) | CPT/HCPCS: 99232; 99239; 99499 ==

== ENCOUNTER 2025-05-18 14:18 | Outpatient (AMB) | payer MEDICAID, SELFPAY ==
--- NOTE | 2025-05-18 14:19 | A.OFFVIS_ITS ---
Intake Visit Reasons: follow up GCA Intake Note: Patient was referred to Vascular for GCA. States he went to the [facility] room on 05/15/25 for a headache. He says it is better now, was having headaches for 2 weeks. Accompanied by: Unknown Allergies No Known Allergies Allergy (Verified 05/18/25 14:22) HPI HPI follow up GCA: Details: Very pleasant 60-year-old gentleman presents for hospital follow-up. He had originally presented to the hospital with right-sided temporal headaches that have been associated for about 2 weeks. He denied any visual field issues complained of this persistent right-sided headache. He was subsequently worked up and noted that his ESR and CRP are what type of markers ESR and CRP year what time for inflammatory markers. He now presents to us for vascular evaluation and potential temporal artery biopsy. [facility] Social History Household Members: Spouse and Family Housing: House Do you presently have visiting nurse or other home services: No Patient Tobacco Use Status: Current someday Tobacco user service: No Review of Systems Const All systems reviewed & are unremarkable except as noted in HPI and below Reports no additional complaints ENT Reports Normal hearing present Card Denies chest pain, Denies chest pain at rest, Denies chest pain with activity and Denies pedal edema Resp Denies cough GI Denies abdominal pain Musc Denies abnormal gait, Denies muscle cramps and Denies radiating pain into limb Skin/Breast Denies skin ulcer and Denies wounds Neuro Reports Normal hearing present and Denies abnormal gait Psych Reports no additional complaints Physical Exam Const General: cooperative, healthy appearing and comfortable Orientation/consciousness: oriented to person, oriented to place and oriented to time HEENT Head: Yes normal to inspection Neck Neck: Yes normal visual inspection Carotids: no bruits Chest Chest palpation & inspection: normal inspection of the chest Resp Effort & Inspection: normal respiratory effort and able to speak in complete sentences Auscultation: clear to auscultation bilaterally, no crackles, no rales, no rhonchi and no wheezes Cardio Rate: regular rate Rhythm: regular rhythm Heart sounds: S1 normal heart sound present and S2 normal heart sound present Bruits: no carotid bruits Peripheral pulses: Peripheral pulses 2+ throughout GI Inspection: Yes normal to inspection Skin Wounds: no wounds Hair: normal Neuro General: oriented to person, oriented to place and oriented to time Cranial nerves: Yes CN's II-XII intact bilaterally and Yes Normal hearing present Cognition (Neuro): normal cognition Motor exam (neuro): 5/5 motor strength present throughout Extrem Other: venous exam: No significant superficial varicosities or spider telangiectasias, minimal edema General: No clubbing, No cyanosis and No edema Psych Appearance: grossly normal Mental Status: mental status grossly normal Speech and movement: Normal speech and movement present Results Reviewed Results Reviewed: ESR 54 CRP 5.89 Assessment & Plan Assessment & Plan (1) Temporal giant cell arteritis: Code(s): M31.6 - Other giant cell arteritis Category: Medical Plan: In short patient has concern for giant cell arteritis. He will require right temporal artery biopsy. Risks benefits complications of procedure were discussed in detail with the patient. We will schedule as soon as possible. Of note he is being maintained on steroids at the current time. Thank you for allowing us to assist in his care. If there are any questions or concerns please do not hesitate to contact us. Coding Level of Care Code Est Pt Level 4 (78422) Diagnoses Temporal giant cell arteritis M31.6
== END 2025-05-18 15:18 | disposition home or self-care (01) ==
PROVIDERS: Visit Provider Surgery Vascular Surgery
DX: M31.6 Other giant cell arteritis (principal)
CPT/HCPCS: 99214

== ENCOUNTER → 2025-05-18 14:18 | Outpatient (BNVA) | payer MEDICAID, OTHER, SELFPAY | PROVIDERS: Visit Provider Surgery Vascular Surgery | DX: M31.6 Other giant cell arteritis (principal) | CPT/HCPCS: 99212 ==

== ENCOUNTER 2025-05-22 10:46 | Day surgery (SDC) | payer MEDICAID, OTHER, SELFPAY ==
--- NOTE | 2025-05-22 07:23 | MHC.SHP ---
Pre-Procedural Eval Section A - 24 Hr Update-Section A only Date of Service: 05/22/25 The patient is an INPATIENT: No Changes since office visit: Yes Patient answered all questions The patient has been examined within 24 hours of the surgical procedure. The History & Physical has been completed within 30 days and I have reviewed it.: Yes Section B - Complete if H&P > 30 days Chief Complaint: Other giant cell arteritis Allergies: Allergies Allergy/AdvReac Type Severity Reaction Status Date / Time No Known Allergies Allergy Verified 05/18/25 14:22 Plan I have reviewed the history and physical and performed a pertinent physical examination on my patient. No changes have occurred unless specified. Time Spent With Patient Time: Total time managing care of this patient today ____ minutes.
[2025-05-22] MEDS: Lactated Ringers 1,000 ML 100 ML IVCONT (11:33)
[2025-05-22 11:42] VITALS: BP 127/71; PULSE 88; RESP 18; TEMP 36.8; O2SAT 97
[2025-05-22 11:43] VITALS: BMI 29.9
--- NOTE | 2025-05-22 11:59 | P.CONAN_ITS ---
Documented by User: Libra Giron NP 05/19/25 13:51 HPI - Anesthesia Eval Consult details Narrative: 60yo M for Right Temporal Artery Biopsy Prednisone daily since admission [facility] admit 05/12/25-05/15/25 Hospital course: right-sided headache over 2 weeks and some vision defects. Workup likely reveals diet so arteritis/temporal arteritis. He was treated with IV steroids then switch to oral. Discussed with vascular surgery who will follow outpatient for possible biopsy. Patient will also need to follow up with Rheumatology. Plan is to discharge patient with steroid taper. 60 mg for 2 weeks, 50 mg per 2 weeks 40 mg for 2 weeks, 30 mg for 2 weeks after that patient should follow up with Rheumatology for further management of prednisone taper. Continue PPI while on steroids to prevent stress ulcer. PMFSH Active Problems Active Problems: All Active Problems Acute hypotension (Acute) Fever (Acute) Temporal giant cell arteritis (Acute) Past Medical History Medical History (Updated 05/22/25 @ 11:54 by Lakisha Rogers RN) GERD (gastroesophageal reflux disease) Migraines Surgical History Surgical History (Updated 05/22/25 @ 11:47 by Lakisha Rogers RN) History of dental surgery Social History Social History Household Members: Spouse and Family Housing: House Are you a primary skin care specialist to a significant other at home: No Do you presently have visiting nurse or other home services: No Patient Tobacco Use Status: Current someday Tobacco user Tobacco use type: Cigarette Have you been hit, kicked, punched, or otherwise hurt by someone within the past year? If so, by whom?: No Are you DNR?: No Advance Directives: No Advance Directives Information Provided: Yes Poor oral hygiene: No service: No Meds Allergies Allergy/AdvReac Type Severity Reaction Status Date / Time No Known Allergies Allergy Verified 05/22/25 11:47 Home Medications ?Medication ?Instructions ?Recorded ?Confirmed ?Last Taken ?Type acetaminophen 325 mg tablet 650 mg PO Q6H PRN Pain 03/0105/22/25 05/12/25 History Exam Pertinent Lab Results Pertinent Lab Results: Laboratory Tests 05/15/25 05:54 WBC 19.8 H Hgb 11.7 L Hct 32.6 L Plt Count 341 D Sodium 141 Potassium 3.8 Chloride 110 H Carbon Dioxide 22 BUN 26 H Creatinine 0.91 Assessment and Plan Assessment Anesthesia Assessment: Chart Reviewed Documented by User: Sandra Bourgeois DO 05/22/25 12:01 [facility] Past Medical History Medical History (Updated 05/22/25 @ 11:54 by Lakisha Rogers RN) GERD (gastroesophageal reflux disease) Migraines Family History Family history of problems with anesthesia: No Surgical History Surgical History (Updated 05/22/25 @ 11:47 by Lakisha Rogers RN) History of dental surgery History of Problems with Anesthesia: No Social History Social History Household Members: Spouse and Family Housing: House Are you a primary skin care specialist to a significant other at home: No Do you presently have visiting nurse or other home services: No Patient Tobacco Use Status: Current someday Tobacco user Tobacco use type: Cigarette Have you been hit, kicked, punched, or otherwise hurt by someone within the past year? If so, by whom?: No Are you DNR?: No Advance Directives: No Advance Directives Information Provided: Yes Poor oral hygiene: No service: No Meds Allergies Allergy/AdvReac Type Severity Reaction Status Date / Time No Known Allergies Allergy Verified 05/22/25 11:47 Home Medications ?Medication ?Instructions ?Recorded ?Confirmed ?Last Taken ?Type acetaminophen 325 mg tablet 650 mg PO Q6H PRN Pain 03/0105/22/25 05/12/25 History Exam Exam Date and Time: 05/22/25 1155 Height,Weight and Vital Signs: Height 5 ft 6 in Weight 84 kg Vital Signs Temperature 98.2 F 05/22/25 11:42 Pulse Rate 88 05/22/25 11:42 Respiratory Rate 18 05/22/25 11:42 Blood Pressure 127/71 05/22/25 11:42 Pulse Oximetry 97 05/22/25 11:42 Oxygen Delivery Method Room Air 05/22/25 11:42 Temperature 98.2 F 05/22/25 11:42 Pulse Rate 88 05/22/25 11:42 Respiratory Rate 18 05/22/25 11:42 Blood Pressure 127/71 05/22/25 11:42 Pulse Oximetry 97 05/22/25 11:42 Oxygen Delivery Method Room Air 05/22/25 11:42 Airway Mallampati Class: III TM Dist: >3cm Neck ROM: Full Loose/Missing/Broken Teeth: No (patient denies any loose or broken teeth) Heart: S1S2 Lungs: CTAB Assessment and Plan Assessment Anesthesia Assessment: Anesthesia Plan Discussed and Chart Reviewed Final Anesthetic Review Family History of Problems with Anesthesia: No History of Problems with Anesthesia: No NPO: Yes ASA Class: II Final Preanesthetic Review: No Changes in Pt Med Stat, Meds/Allgs Chart Reviewed, Consent Obtained/Reviewed (interpreter for the deaf at bedside for translation) and Anes Risks/Benef Reviewed Patient Risk: Low Procedure Risk: Low Anesthetic Plan Anesthetic Plan: MAC: and Agree w/ Assess. and Plan Disposition: Standard PACU
--- NOTE | 2025-05-22 12:47 | P.OP_ITS ---
Operative Note Operative Note Date of Service: 05/22/25 Narrative: Operative note by [facility] Preoperative diagnosis: Right temporal headache 2. Rule out giant cell arteritis Postoperative diagnosis: Same Procedure: Right temporal artery biopsy Surgeon:Osmin Rogers M.D. Arch Support Technician: Bella Anesthesia: Local with sedation performed by anesthesia under Dr. Bourgeois Specimens: 1 Drains: None Estimated blood loss: Minimal Indications: 60-year-old gentleman who presented to the hospital with intense right temporal headaches and elevated ESR and CRP now presents for temporal artery biopsy. The patient has signed the informed consent after reviewing risks, complications, benefits, and alternatives previously discussed with the patient. The patient was given the opportunity to ask any additional questions or voice any concerns. All questions were answered to the patient's satisfaction. Procedure in detail: Patient was brought to the operating room prior to which a time-out was called for patient identification and site verification just anterior to the ear in the right temporal region proximally a 5 cm incision was carried out. We went through the skin soft tissue down through the fascia and was easily able to identify the temporal artery. This was dissected free with fine tenotomy scissors. Side branches had to be ligated with a 3-0 silk tie. We identified a proximally 2 cm segment. We then ligated the proximal and distal end once again with 3-0 silk ties. Specimen was removed and passed off the table for pathology. Once this was accomplished we irrigated the wound thoroughly. Adequate hemostasis was achieved. Deep layer was reapproximated using 2-0 Polysorb and the skin was closed using a 4-0 Monocryl in a running subcuticular manner. Patient tolerated the procedure well returned to recovery with stable vitals This note is constructed using voice recognition software. While every effort has been made to ensure accuracy, account manager employee benefits errors may have been included. Thank you for allowing me to participate in the care of your patient. Yours sincerely, Osmin Rogers MD, FACS, R.P.V.I.
[2025-05-22 12:48] VITALS: BP 98/60; PULSE 90; RESP 18; TEMP 36.3; O2SAT 96
[2025-05-22 13:00] VITALS: BP 111/68; PULSE 80; RESP 18; O2SAT 96
[2025-05-22 13:15] VITALS: BP 110/71; PULSE 75; RESP 18; TEMP 36.3; O2SAT 97
== END 2025-05-22 13:58 | disposition home or self-care (01) ==
PROVIDERS: Visit Provider Surgery Vascular Surgery
PROC: (CPT 37609; principal; 2025-05-22 12:20)
DX: G44.029 Chronic cluster headache, not intractable (principal); R70.0 Elevated erythrocyte sedimentation rate; R79.82 Elevated C-reactive protein (CRP); G43.909 Migraine, unspecified, not intractable, without status migrainosus; I95.89 Other hypotension; K21.9 Gastro-esophageal reflux disease without esophagitis; Z79.52 Long term (current) use of systemic steroids; Z79.899 Other long term (current) drug therapy; F17.210 Nicotine dependence, cigarettes, uncomplicated
CPT/HCPCS: 37609; 88305; J0690; J2003; J2250; J2405; J2704; J2795; J3010

== ENCOUNTER → 2025-05-22 10:46 | Outpatient (BNV) | payer MEDICAID, SELFPAY | PROVIDERS: Visit Provider Surgery Vascular Surgery | DX: R51.9 Headache, unspecified (principal) | CPT/HCPCS: 37609 ==